=== PATIENT | male | born 1980 | race Caucasian/White ===

== ENCOUNTER 2020-08-02 08:00 | Outpatient (CLI) | payer BC, SELFPAY ==
[2020-08-02 08:27] LABS: Alanine Aminotransferase 83 U/L (4-50); Albumin Level 4.7 g/dL (3.5-5.1); Alkaline Phosphatase 46 U/L (38-126); Anion Gap 7 mmol/L (8-16); Aspartate Amino Transferase 34 U/L (17-59); Bilirubin,Total 0.6 mg/dL (0.2-1.3); Blood Urea Nitrogen 17 mg/dL (9-20); Calcium 9.5 mg/dL (8.4-10.2); Carbon Dioxide 35 mmol/L (22-30); Chloride 101 mmol/L (98-107); Cholesterol 264 mg/dL (0-200); Estimated Glomerular Filt Rate > 60; Glucose 105 mg/dL (75-110); HDL Direct 68 mg/dL; Potassium 4.7 mmol/L (3.4-5.0); Sodium 143 mmol/L (137-145); Triglycerides 158 mg/dL (<150)
[2020-08-02 08:39] LABS: LDL Cholesterol Direct 150 mg/dL
== END 2020-08-02 08:01 | disposition home or self-care (01) ==
PROVIDERS: PCP Internal Medicine; Visit Provider Nurse Practitioner
DX: Z00.00 Encounter for general adult medical examination without abnormal findings (principal); E78.5 Hyperlipidemia, unspecified
CPT/HCPCS: 36415; 80053; 80061; 84443

== ENCOUNTER 2021-07-28 11:10 | Outpatient (CLI) | payer BC, SELFPAY ==
[2021-07-28 11:34] LABS: Alanine Aminotransferase 80 U/L (4-50); Albumin Level 4.8 g/dL (3.5-5.1); Alkaline Phosphatase 55 U/L (38-126); Anion Gap 8 mmol/L (8-16); Aspartate Amino Transferase 39 U/L (17-59); Bilirubin,Total 0.6 mg/dL (0.2-1.3); Blood Urea Nitrogen 19 mg/dL (9-20); Calcium 9.7 mg/dL (8.4-10.2); Carbon Dioxide 31 mmol/L (22-30); Chloride 99 mmol/L (98-107); Cholesterol 278 mg/dL (0-200); Estimated Glomerular Filt Rate > 60; Glucose 96 mg/dL (65-110); HDL Direct 83 mg/dL; Potassium 4.5 mmol/L (3.4-5.0); Sodium 138 mmol/L (137-145); Triglycerides 95 mg/dL (<150)
[2021-07-28 11:45] LABS: LDL Cholesterol Direct 158 mg/dL
== END 2021-07-28 11:11 | disposition home or self-care (01) ==
PROVIDERS: PCP Internal Medicine; Visit Provider Nurse Practitioner
DX: Z00.00 Encounter for general adult medical examination without abnormal findings (principal)
CPT/HCPCS: 36415; 80053; 80061

== ENCOUNTER 2022-08-29 07:27 | Outpatient (CLI) | payer BC, SELFPAY ==
[2022-08-29 07:56] LABS: Hemoglobin A1C 5.4 % (<5.7)
[2022-08-29 08:05] LABS: Alanine Aminotransferase 82 U/L (6-50); Albumin Level 4.5 g/dL (3.5-5.1); Alkaline Phosphatase 50 U/L (38-126); Anion Gap 10 mmol/L (8-16); Aspartate Amino Transferase 35 U/L (17-59); Bilirubin,Total 0.6 mg/dL (0.2-1.3); Blood Urea Nitrogen 15 mg/dL (9-20); Calcium 8.9 mg/dL (8.4-10.2); Carbon Dioxide 28 mmol/L (22-30); Chloride 101 mmol/L (98-107); Cholesterol 290 mg/dL (0-200); Estimated Glomerular Filt Rate > 60; Glucose 105 mg/dL (65-110); HDL Direct 61 mg/dL; Potassium 4.4 mmol/L (3.4-5.0); Sodium 139 mmol/L (137-145); Triglycerides 195 mg/dL (<150)
[2022-08-29 08:16] LABS: LDL Cholesterol Direct 153 mg/dL
== END 2022-08-29 07:28 | disposition home or self-care (01) ==
LOC: ANHLAB 07:29
PROVIDERS: PCP Internal Medicine; Visit Provider Nurse Practitioner
DX: Z00.00 Encounter for general adult medical examination without abnormal findings (principal); E78.5 Hyperlipidemia, unspecified
CPT/HCPCS: 36415; 80053; 80061; 83036

== ENCOUNTER 2023-08-28 09:11 | Outpatient (CLI) | payer BC, SELFPAY ==
[2023-08-28 12:19] LABS: Alanine Aminotransferase 78 U/L (6-50); Albumin Level 4.2 g/dL (3.5-5.1); Alkaline Phosphatase 44 U/L (38-126); Anion Gap 7 mmol/L (8-16); Aspartate Amino Transferase 66 U/L (17-59); Bilirubin,Total 0.5 mg/dL (0.2-1.3); Blood Urea Nitrogen 16 mg/dL (9-20); Calcium 9.1 mg/dL (8.4-10.2); Carbon Dioxide 31 mmol/L (22-30); Chloride 104 mmol/L (98-107); Cholesterol 237 mg/dL (0-200); Estimated Glomerular Filt Rate > 60; Glucose 92 mg/dL (65-110); HDL Direct 54 mg/dL; Potassium 4.5 mmol/L (3.4-5.0); Sodium 142 mmol/L (137-145); Triglycerides 93 mg/dL (<150)
[2023-08-28 12:29] LABS: Hemoglobin A1C 5.2 % (<5.7)
[2023-08-28 12:38] LABS: LDL Cholesterol Direct 137 mg/dL
== END 2023-08-28 09:12 | disposition home or self-care (01) ==
LOC: ANHGOSHLAB 09:12
PROVIDERS: PCP Emergency Medicine; Visit Provider Emergency Medicine
DX: E78.5 Hyperlipidemia, unspecified (principal); Z00.00 Encounter for general adult medical examination without abnormal findings; Z79.899 Other long term (current) drug therapy; Z13.29 Encounter for screening for other suspected endocrine disorder; Z13.220 Encounter for screening for lipoid disorders
CPT/HCPCS: 36415; 80053; 80061; 83036

== ENCOUNTER 2024-08-19 08:59 | Outpatient (CLI) | payer BC, SELFPAY ==
[2024-08-19 13:39] LABS: Alanine Aminotransferase 137 U/L (6-50); Albumin Level 4.8 g/dL (3.5-5.1); Alkaline Phosphatase 55 U/L (38-126); Anion Gap 7 mmol/L (4-12); Aspartate Amino Transferase 110 U/L (17-59); Basophils Absolute Auto 0.1 K/mm3 (0.0-0.1); Basophils Percent Auto 0.9 % (0.2-1.2); Bilirubin,Total 0.7 mg/dL (0.2-1.3); Blood Urea Nitrogen 17 mg/dL (9-20); Calcium 9.5 mg/dL (8.4-10.2); Carbon Dioxide 33 mmol/L (22-30); Chloride 99 mmol/L (98-107); Cholesterol 288 mg/dL (0-200); Eosinophils Absolute Auto 0.1 K/mm3 (0-0.3); Estimated Glomerular Filt Rate > 60; Glucose 93 mg/dL (65-110); HDL Direct 69 mg/dL; Hematocrit 47.6 % (42.0-52.0); Hemoglobin 15.6 g/dL (14.0-18.0); Immature Granulocyte Absolute 0.03 K/mm3 (0.00-0.031); Immature Granulocyte Percent A 0.5 % (0-0.5); Lymphocytes Absolute Auto 2.01 K/mm3 (0.9-3.2); Lymphocytes Percent Auto 30.3 % (18.3-44.2); Mean Corpuscular HGB Conc 32.8 g/dl (32-36); Mean Corpuscular Hemoglobin 29.6 pg (26-34); Mean Corpuscular Volume 90.3 fl (80-100); Mean Platelet Volume 11.7 fl (7.4-10.4); Monocytes Absolute Auto 0.6 K/mm3 (0.1-0.6); Monocytes Percent Auto 9.7 % (2.6-8.5); Neutrophils Absolute Auto 3.8 K/mm3 (1.3-6.7); Neutrophils Percent Auto 56.6 % (45.5-73.1); Platelet Count Result 202 k/mm3 (150-375); Potassium 4.5 mmol/L (3.4-5.0); Red Blood Count 5.27 M/mm3 (4.6-6.20); Red Cell Distribution Width 12.3 % (11.5-14.5); Sodium 139 mmol/L (137-145); Triglycerides 133 mg/dL (<150); White Blood Count 6.6 K/mm3 (4.5-10.0)
[2024-08-19 13:49] LABS: LDL Cholesterol Direct 169 mg/dL
[2024-08-19 15:37] LABS: Hepatitis B Surface Antigen Negative (Negative)
[2024-08-19 15:43] LABS: HAV RESULT Negative (Negative); Hepatitis B Core IgM Result Negative (Negative)
[2024-08-19 15:55] LABS: Hepatitis C Virus Antibody Negative (Negative)
[2024-08-19 17:50] LABS: Vitamin D 25 Hydroxy 26.4 ng/mL
== END 2024-08-19 09:00 | disposition home or self-care (01) ==
LOC: ANHGOSHLAB 09:01
PROVIDERS: PCP Family Medicine; Visit Provider Family Medicine
DX: Z00.00 Encounter for general adult medical examination without abnormal findings (principal); E78.5 Hyperlipidemia, unspecified; E55.9 Vitamin D deficiency, unspecified; R53.83 Other fatigue; R74.8 Abnormal levels of other serum enzymes
CPT/HCPCS: 36415; 80053; 80061; 80074; 82172; 82306; 84443; 85025

== ENCOUNTER 2024-11-06 08:25 | Outpatient (CLI) | payer BC, SELFPAY ==
--- NOTE | ~2024-11-06 | US_ITS ---
EXAMINATION: US abdomen complete DATE: 11/06/2024 08:41 INDICATION: Abnormal liver function tests. TECHNIQUE: Multiple grayscale and Doppler ultrasound images of the abdomen were obtained. COMPARISON: None FINDINGS: The visualized portions of the head, body, and tail of the pancreas are normal. There is di ffuse hepatic steatosis with focal sparing in the gallbladder fossa. There is normal flow in main por [place] vein. The gallbladder is normal in size. No gallstones or gallbladder wall thickening. There is n o sonographic Horner's sign. The common duct is normal and measures 5 mm. The kidneys are normal size . The spleen is normal in size. Abdominal aorta is normal in caliber. Inferior vena cava is normal. IMPRESSION: 1. Diffuse hepatic steatosis. Reviewed, dictated and finalized at location [facility]
== END 2024-11-06 08:26 | disposition home or self-care (01) ==
LOC: GOSHIMG 08:26
PROVIDERS: PCP Family Medicine; Visit Provider Family Medicine
DX: R74.8 Abnormal levels of other serum enzymes (principal); K76.0 Fatty (change of) liver, not elsewhere classified
CPT/HCPCS: 76700

== ENCOUNTER 2025-01-15 00:15 | Day surgery (SDC) | payer BC, SELFPAY ==
[2025-01-06 15:47] VITALS: BMI 25.8
[2025-01-15 10:19] VITALS: BP 129/75; PULSE 70; RESP 20; TEMP 36.1; O2SAT 100; BMI 25.9
[2025-01-15] MEDS: LACTATED RINGERS 1,000 ML 150 ML IV CONT (10:25)
--- NOTE | 2025-01-15 10:57 | P.HP_ITS ---
H&P: HPI History of Present Illness Date/Time: 01/15/25 10:57 Chief Complaint: Screening colonoscopy Narrative: This is the patient's first colonoscopy. There are no GI symptoms and there is no family history of colorectal cancer. Review of Systems Review of Systems: All systems reviewed & are unremarkable except as noted in HPI and below [facility] Past Medical History Medical History Cellulitis of right lower extremity High blood cholesterol URI, acute Family History Family History Grandparent Cancer Social History Social History Smoking packs per day: 0.15 Smoking cigarettes per day: 3.0 Years smoked: 5 Smoking pack-years: 0.75 Smoking status: Former smoker Tobacco type: cigarettes Second hand tobacco smoke exposure: No Smoking end date: 10/07/09 Alcohol intake: current Drinks per week: 7 Alcohol use details: social Substance use: never Do You Feel Safe in your Home?: Yes Lack of Transportation: No Lack of Food: Never True Current Housing: I Have Housing Concerned About Future Housing: No Difficulty Paying Gas/Electric Bills: No Difficulty Paying for Meds: No Currently Unemployed: No Education: Master's Degree or Higher Difficulty w/ Childcare or Family Care: No Living arrangements: with family Gender identity (if verbalized by the patient): Male Spiritual care concerns: No Agree to blood products: Yes Meds Home Medications and Allergies Home Medications ?Medication ?Instructions ?Recorded ?Confirmed ?Type No Home Medications 08/28/23 01/06/25 History Allergies Allergy/AdvReac Type Severity Reaction Status Date / Time bacitracin Allergy Unknown rash Verified 01/15/25 10:18 polymyxin B Allergy Unknown RASH Verified 01/15/25 10:18 Vital Signs Vital Signs - 24 hr 01/15/25 10:19 Temperature 97 F L Pulse Rate 70 Respiratory Rate 20 Blood Pressure 129/75 Pulse Oximetry 100 Oxygen Delivery Room Air Exam Const: General: cooperative and healthy appearing Resp: Effort & Inspection: normal respiratory effort and able to speak in complete sentences Auscultation: clear to auscultation bilaterally Cardio: Rate: regular rate Rhythm: regular rhythm GI: Inspection: normal to inspection GI Palp: No No hepatosplenomegaly present Auscultation: normal bowel sounds Rectal Exam: deferred Skin: General skin exam: normal color Psych: Appearance: grossly normal Mental Status: mental status grossly normal Assessment and Plan Assessment and plan (1) Encounter for screening colonoscopy: Code(s): Z12.11 - Encounter for screening for malignant neoplasm of colon Status: Acute Assessment and Plan: The patient is deemed a good candidate for the procedure. Consent signed. Will proceed.
[2025-01-15 11:29] VITALS: BP 104/63; PULSE 74; RESP 22; O2SAT 98
[2025-01-15 11:39] VITALS: BP 102/77; PULSE 61; RESP 16; O2SAT 100
[2025-01-15 11:49] VITALS: BP 118/83; PULSE 56; RESP 16; O2SAT 100
== END 2025-01-15 12:10 | disposition home or self-care (01) ==
PROVIDERS: PCP Family Medicine; Referring Provider Family Medicine; Visit Provider Internal Medicine Gastroenterology
PROC: 0DJD8ZZ Inspection of Lower Intestinal Tract, Via Natural or Artificial Opening Endoscopic (ICD-10-PCS; CPT 45378; principal; 2025-01-15 11:30)
DX: Z12.11 Encounter for screening for malignant neoplasm of colon (principal); D12.5 Benign neoplasm of sigmoid colon; E78.00 Pure hypercholesterolemia, unspecified; Z87.891 Personal history of nicotine dependence; Z80.9 Family history of malignant neoplasm, unspecified
CPT/HCPCS: 45385; 88305; J2003; J2704; J7120